=== PATIENT | female | born 1945 ===

== ENCOUNTER 2018-11-16 12:09 | Emergency (ER) | payer MEDICARE, BC ==
[2018-11-16 12:52] VITALS: BP 146/80
--- NOTE | 2018-11-16 13:16 | UC ---
Respiratory Complaint HPI - HPI Summary HPI Summary: Patient is a 73-year-old female with a history of diabetes for which she takes metformin. Patient here visiting from [place]. Patient states she's been here since a week ago Wednesday. Patient states on day 2 of her trip here she developed a cough and congestion. Patient reports sinus congestion postnasal drip. Patient's brother who is 91 and was diagnosed with pneumonia today. Patient scheduled to be here for another 5 days and wanted to get checked. Patient denies fevers or chills. Patient states the cough wakes her up at night. Patient denies nausea vomiting. But does report D. No shortness of breath. No chest pain. Patient's medications reviewed this visit. - History of Current Complaint Chief Complaint: UCGeneralIllness Stated Complaint: COUGH Time Seen by Provider: 11/16/18 12:54 Hx Obtained From: Patient Pain Intensity: 0 - Allergies/Home Medications Allergies/Adverse Reactions: Allergies Allergy/AdvReac Type Severity Reaction Status Date / Time Penicillins Allergy Intermediate Rash Verified 11/16/18 12:42 Sulfa (Sulfonamide Allergy Intermediate Rash Verified 11/16/18 12:42 Antibiotics) Home Medications: Home Medications amLODIPine TAB* [Norvasc 5 mg TAB*] 1 tab PO DAILY 11/16/18 [History Confirmed 11/16/18] metFORMIN* [Glucophage 500 MG TAB *] 1 tab PO DAILY 11/16/18 [History Confirmed 11/16/18] PMH/Surg Hx/FS Hx/Imm Hx Previously Healthy: Yes Endocrine History: Diabetes Cardiovascular History: Hypertension - Surgical History Surgical History: None - Family History Known Family History: Negative: Non-Contributory - Social History Occupation: Retired Lives: With Family Alcohol Use: Occasionally Substance Use Type: None Smoking Status (MU): Never Smoked Tobacco Review of Systems All Other Systems Reviewed And Are Negative: Yes Constitutional: Positive: Negative Skin: Positive: Negative ENT: Positive: Sore Throat, Sinus Congestion, Sinus Pain/Tenderness - Prices are pretty good to Respiratory: Positive: Cough Cardiovascular: Positive: Negative Physical Exam - Summary Physical Exam Summary: Vital Signs Reviewed: Yes A+Ox3, no distress Eyes: Conjunctiva Clear, MARY. EOM intact and full ENT: Hearing grossly normal TM x 2 clear, scant fluid left ear, no erythema. turbinates inflammed, + congested and boggy, mmoist, + max sinus discomfort L>R , uvula midline, no exudate, no erythema Neck: Positive: Supple Respiratory: Positive: No respiratory distress, No accessory muscle use + CTA throughout no w/r Cardiovascular: RRR nl s1, s2 no m/r CBT <2 sec abd soft + BS nt/nd no guarding, no distension Musculoskeletal Exam: VÁZQUEZ x 4 without difficulty Strength Intact, ROM Intact Neurological: Positive: Alert, + sensation throughout Psychological: Positive: Normal Response To examiner Skin: Positive: no rash, no ecchymosis Triage Information Reviewed: Yes Vital Signs: Initial Vital Signs Temp 97.6 F 11/16/18 12:46 Pulse 62 11/16/18 12:46 Resp 16 11/16/18 12:46 BP 146/80 11/16/18 12:46 Pulse Ox 98 11/16/18 12:46 Respiratory Course/Dx - Course Course Of Treatment: Recently presents with progressive sinus congestion postnasal drips or throat cough for the last 8 days. Patient does have diabetes. Patient states her family who she is here visiting with Brother was diagnosed with pneumonia this morning. Patient states she is here for 5 days before flying back to [place]. On exam vital signs are stable. Patient with mild increased blood pressure which is baseline for her. Patient does have sinus congestion and thick postnasal drip. Suspect this is because of her coughing. Lungs are clear. Sats are okay. We'll prescribe antibiotics as well as Flonase. Recommend patient precautions. Motrin as needed. Return precautions. Patient comfortable with plan. Patient will be discharged home to follow up with primary which returns home. - Differential Dx/Diagnosis Provider Diagnosis: Rhinosinusitis Discharge ED - Sign-Out/Discharge Documenting (check all that apply): Patient Departure All imaging exams completed and their final reports reviewed: No Studies - Discharge Plan Condition: Stable Disposition: HOME Prescriptions: DOXYcycline CAP(*) [DOXYcycline 100MG CAP(*)] 100 mg PO BID #14 cap Patient Education Materials: Rhinosinusitis (ED) Referrals: No Primary Care Phys,NOPCP [Primary Care Provider] - Additional Instructions: - Stay well hydrated. Drink plenty of non-alcoholic, non-caffinated beverages. - Alternate ibuprofen (Advil, Motrin) 600mg and Tylenol every 3 hours for pain or fever. Take with food. Do NOT take for more than 4-5 days. - These infections are spread by secretions - do NOT share eating or drinking utensils - clean items you share with other people such as cell phones, computer mouse, TV remote, computer tablets,etc. Once you have been antibiotics for 2 days, change your toothbrush and your pillowcase. -continue taking nasal spray as prescribed. It is recommended you take Claritin , Julia, or Zyrtec - Take antibiotics as prescribed until gone - contact your doctor or return with questions or concerns - Billing Disposition and Condition Condition: STABLE Disposition: Home
== END 2018-11-16 13:36 | disposition home or self-care (01) ==
LOC: UCEAST 12:09
DX: J32.9 Chronic sinusitis, unspecified (principal); E11.9 Type 2 diabetes mellitus without complications; I10 Essential (primary) hypertension; Z79.84 Long term (current) use of oral hypoglycemic drugs; Z88.0 Allergy status to penicillin; Z88.2 Allergy status to sulfonamides; Z79.899 Other long term (current) drug therapy
CPT/HCPCS: 99202; G0463